=== PATIENT | female | born 1975 | race Caucasian/White ===

== ENCOUNTER 2025-06-07 13:14 | Outpatient (CLI) | payer SELFPAY | END 2025-06-07 13:15 | disposition home or self-care (01) | LOC: CSHCT 13:14 | PROVIDERS: ATTEND Student in an Organized Health Care Education/Training Program | DX: Z82.49 Family history of ischemic heart disease and other diseases of the circulatory system (principal); I25.10 Atherosclerotic heart disease of native coronary artery without angina pectoris; I25.84 Coronary atherosclerosis due to calcified coronary lesion | CPT/HCPCS: 75571 ==